=== PATIENT | male | born 2000 | race Caucasian/White ===

== ENCOUNTER 2021-05-03 15:08 | Emergency (ER) | payer OTHER ==
[~2021-05-03 15:08] MED LIST: IBUPROFEN600 MG PO; IMODIUM CAP 2 MG2 MG PO; LEVAQUIN750 MG PO; PERCOCET 5/325 T1 EA PO; ZOFRAN4 MG PO
[2021-05-03 15:38] LABS: HEMOGLOBIN 16.6 gm/dl (14.0-17.5); RED BLOOD COUNT 5.12 M/UL (4.20-5.50); WHITE BLOOD COUNT 7.5 K/UL (4.5-11.0)
[2021-05-03 16:16] LABS: BUN/CREATININE RATIO 18 (0-10)
== END 2021-05-03 17:20 | disposition home or self-care (01) ==
LOC: ER1 15:08
PROVIDERS: Emergency Medicine
DX: R06.00 Dyspnea, unspecified (principal); R42 Dizziness and giddiness
CPT/HCPCS: 70450; 71045; 80053; 80307; 82550; 82553; 82962; 83874; 84484; 85025; 85379; 93005; 99285; J7030

== ENCOUNTER 2021-11-09 22:28 | Emergency (ER) | payer SELFPAY | END 2021-11-09 22:48 | disposition left against medical advice (07) | LOC: ER1 22:28 | DX: Z53.21 Procedure and treatment not carried out due to patient leaving prior to being seen by health care provider (principal) ==

== ENCOUNTER 2021-11-16 22:45 | Emergency (ER) | payer OTHER ==
[2021-11-16 23:07] LABS: HEMOGLOBIN 15.1 gm/dl (14.0-17.5); RED BLOOD COUNT 4.84 M/UL (4.20-5.50); WHITE BLOOD COUNT 8.5 K/UL (4.5-11.0)
[2021-11-16 23:31] LABS: BUN/CREATININE RATIO 18 (0-10)
[2021-11-17] MEDS ORDERED: VISTARIL25 MG PO (01:37)
== END 2021-11-17 01:54 | disposition home or self-care (01) ==
LOC: ER1 22:45
PROVIDERS: Physician Assistant
DX: F41.9 Anxiety disorder, unspecified (principal); R00.2 Palpitations
CPT/HCPCS: 71045; 80053; 82550; 82553; 83874; 84439; 84443; 84484; 85025; 93005; 99285

== ENCOUNTER 2022-01-18 23:42 | Emergency (ER) | payer OTHER ==
[~2022-01-18 23:42] MED LIST changes: +VISTARIL25 MG PO
[2022-01-19 03:40] LABS: HEMOGLOBIN 15.8 gm/dl (14.0-17.5); WHITE BLOOD COUNT 10.9 K/UL (4.5-11.0)
[2022-01-19 04:05] LABS: BUN/CREATININE RATIO 16 (0-10)
== END 2022-01-19 05:10 | disposition home or self-care (01) ==
LOC: ER1 23:42
PROVIDERS: Student in an Organized Health Care Education/Training Program
DX: R00.2 Palpitations (principal)
CPT/HCPCS: 71045; 80048; 82550; 82553; 84439; 84443; 84484; 85025; 93005; 99285